=== PATIENT | male | born 1940 | race American Indian/Alaskan Native ===

== ENCOUNTER 2016-12-22 09:44 | Outpatient (CLI) | payer MEDICARE ==
--- NOTE | 2016-12-23 12:07 | Vascular Lab Report ---
LOWER EXTREMITY ARTERIAL DUPLEX: REASON FOR EXAM: Peripheral arterial disease. COMMENTS ON THE RIGHT: Biphasic waveforms are seen proximally. Monophasic waveforms are seen distally. No significant velocity gradients are identified. Scattered plaque noted throughout the vessels.. Findings are consistent with normal perfusion. Findings are consistent with the ability to heal distal wounds. COMMENTS ON THE LEFT: Biphasic waveforms are seen proximally. Monophasic waveforms are seen distally. No significant velocity gradients are identified. No focal significant plaque is identified. Findings are consistent with normal perfusion. Findings are consistent with the ability to heal distal wounds. IMPRESSION: RIGHT: Essentially normal arterial flow with diffuse nonocclusive peripheral vascular disease. LEFT:Essentially normal arterial flow with diffuse nonocclusive peripheral vascular disease.
== END 2016-12-22 09:45 | disposition home or self-care (01) ==
LOC: VAS 09:44
PROVIDERS: ATTEND Internal Medicine
DX: I73.9 Peripheral vascular disease, unspecified (principal)
CPT/HCPCS: 93925